=== PATIENT | male | born 1965 | race Caucasian/White ===

== ENCOUNTER 2020-03-11 12:40 | Emergency (ER) | payer SELFPAY ==
--- NOTE | 2020-03-11 13:07 | ED.PDOC ---
History of Present Illness - General Chief Complaint: General Time Seen by Provider: 03/11/20 12:44 Source: patient, RN notes reviewed, Vital Signs reviewed Exam Limitations: no limitations - History of Present Illness Initial Comments: 55 yo male with CKD, hx of testicular cancer comes in with two weeks of abdominal pain, generalized malaise, n/v. States he was [facility] 2 months ago, and is trying to establish care. Has been having LUQ abdominal pain, radiating to his left flank associated with n/v Allergies/Adverse Reactions: Allergies NO KNOWN ALLERGY Allergy (Verified 03/11/20 12:55) Home Medications: Ambulatory Orders Ondansetron HCl [Zofran] 4 mg PO TID PRN #15 tab 03/11/20 Review of Systems - Review of Systems Constitutional: Denies: chills, fever, malaise EENTM: Denies: blurred vision, ear discharge, throat pain, throat swelling Respiratory: States: short of breath. Denies: cough, stridor, wheezing Cardiology: Denies: chest pain, palpitations, syncope Gastrointestinal/Abdominal: States: abdominal pain, nausea, vomiting. Denies: constipation, diarrhea Genitourinary: Denies: dysuria, frequency, hematuria Musculoskeletal: Denies: back pain, joint pain, muscle pain Skin: Denies: rash Neurological: States: headache. Denies: numbness, paresthesia, pre-existing deficit, tremors, weakness Endocrine: Denies: unexplained weight gain, unexplained weight loss Hematologic/Lymphatic: Denies: blood clots, easy bleeding, easy bruising Past Medical History (General) - Patient Medical History Hx Seizures: No Hx Stroke: No Hx Dementia: No Hx Asthma: No Hx of COPD: No Hx Cardiac Disorders: No Hx Congestive Heart Failure: No Hx Pacemaker: No Hx Hypertension: Yes Hx Thyroid Disease: Yes Hx Diabetes: No Hx Gastroesophageal Reflux: No Hx Renal Disease: Yes Hx Cancer: No Hx of HIV: No Hx Other - free text: testicular cancer Surgical History: other - hernia repair - Social History Hx Chewing Tobacco Use: No Family Medical History - Family History Mother Hx Family;Other: polycystic kidney disease, renal transplant. Physical Exam - Physical Exam General Appearance: Alert, Comfortable, No apparent distress, Well Developed, Well Groomed, Well Hydrated, Well Nourished Eye Exam: bilateral normal Ears, Nose, Throat: hearing grossly normal, normal ENT inspection, normal pharynx Neck: non-tender, full range of motion, supple, normal inspection Respiratory: chest non-tender, lungs clear, normal breath sounds, no respiratory distress, no accessory muscle use Cardiovascular/Chest: normal peripheral pulses, regular rate, rhythm, no edema, no gallop, no JVD, no murmur Peripheral Pulses: radial,right: 2+, radial,left: 2+ Gastrointestinal/Abdominal: normal bowel sounds, non tender, soft, no organomegaly, no pulsatile mass Rectal Exam: deferred Back Exam: normal inspection, no CVA tenderness, no vertebral tenderness Extremity: normal range of motion, non-tender, normal inspection, no pedal edema, no calf tenderness, normal capillary refill 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 CT head negative for any ICH. CT shows:1. Markedly advanced changes of adult polycystic kidney disease with massive enlargement of each kidney and marked progression from previous 2009 examination. Innumerable small to large cysts with areas of hyperdense cyst formation is present with each kidney extending from the level of the diaphragm to several centimeters below each iliac crest. The left kidney bulges anteriorly in the retroperitoneum to near the undersurface of the anterior abdominal wall. Right kidney estimated at 23.3 x 11 x 15.4 cm and left kidney at 27 x 10 x 15 cm. Hydronephrosis is not apparent. Minimal residual renal parenchyma inferiorly on the right is little changed from 2009 study. 2. Marked mass effect with anterior displacement of the pancreas stomach small and large bowel without obstruction or ileus. 3. Small amount of posterior pelvic ascites, of uncertain significance. Moderate colonic diverticulosis noted. 4. Progressive degenerative changes of the mid lumbar spine with advanced stable degenerative changes at the lumbosacral junction. Cr Cl 29 Given zofran and phenergan for nausea. patient PO tolerant. The data reviewed when caring for this patient included: nurse notes, prior records, etc. The history and assessments from nurses notes were reviewed and considered, and the patient's home medication list was also reviewed and considered. My assessment and the results of testing completed here in the ED were discussed with the patient/family. All questions were answered, and they express understanding of my assessment and the plan. They have been instructed to return if their symptoms worsen, and have been asked to follow up with their primary care physicianand nephrology to recheck today's presenting complaint. Strict return precautions given. I have reviewed medication, benefits, alternatives and side effects. Patient decided to proceed with medication.patient discharged home in stable condition. Kaye Quarles DO #[id number] - Results/Orders Results/Orders: Laboratory Results WBC 6.0 K/mm3 (4.8-10.8) 03/11/20 13:00 RBC 3.59 M/mm3 (4.70-6.10) L 03/11/20 13:00 Hgb 10.8 gm/dL (14.0-18.0) L 03/11/20 13:00 Hct 31.4 % (42.0-52.0) L 03/11/20 13:00 MCV 87.5 fl (80.0-94.0) 03/11/20 13:00 MCH 30.2 pg (27.0-31.0) 03/11/20 13:00 MCHC 34.5 g/dL (33.0-37.0) 03/11/20 13:00 RDW 14.0 % (11.5-14.5) 03/11/20 13:00 Plt Count 223 K/mm3 (130-400) 03/11/20 13:00 MPV 7.4 fl (7.40-10.4) 03/11/20 13:00 Absolute Neuts (auto) 4.40 K/uL (1.8-6.8) 03/11/20 13:00 Absolute Lymphs (auto) 1.20 K/uL (1.0-3.4) 03/11/20 13:00 Absolute Monos (auto) 0.30 K/uL (0.2-0.8) 03/11/20 13:00 Absolute Eos (auto) 0.10 K/uL (0.0-0.4) 03/11/20 13:00 Absolute Basos (auto) 0.00 K/uL (0.0-0.1) 03/11/20 13:00 Neutrophils % 74.1 % (42.0-78.0) 03/11/20 13:00 Lymphocytes % 19.6 % (20.0-50.0) L 03/11/20 13:00 Monocytes % 4.8 % (2.0-9.0) 03/11/20 13:00 Eosinophils % 0.9 % (1.0-5.0) L 03/11/20 13:00 Basophils % 0.6 % (0.0-2.0) 03/11/20 13:00 Sodium 139 mmol/L (135-145) 03/11/20 13:00 Potassium 4.7 mmol/L (3.6-5.0) 03/11/20 13:00 Chloride 109 mmol/L (101-111) 03/11/20 13:00 Carbon Dioxide 22 mmol/L (21-31) 03/11/20 13:00 Anion Gap 12.7 (12-18) 03/11/20 13:00 BUN 29 mg/dL (7-18) H 03/11/20 13:00 Creatinine 3.07 mg/dL (0.6-1.3) H 03/11/20 13:00 BUN/Creatinine Ratio 9.4 (10-20) L 03/11/20 13:00 Random Glucose 126 mg/dL (70-105) H 03/11/20 13:00 Serum Osmolality 284.9 mOsm/L (275-295) 03/11/20 13:00 Calcium 8.7 mg/dL (8.4-10.2) 03/11/20 13:00 Total Bilirubin 0.6 mg/dL (0.2-1.0) 03/11/20 13:00 AST 30 IU/L (10-42) 03/11/20 13:00 ALT 26 IU/L (10-60) 03/11/20 13:00 Alkaline Phosphatase 86 IU/L (42-121) 03/11/20 13:00 Troponin I < 0.02 ng/mL (0.01-0.05) 03/11/20 13:00 B-Natriuretic Peptide 45.5 pg/ml (0-100) 03/11/20 13:00 Serum Total Protein 6.7 gm/dL (6.4-8.2) 03/11/20 13:00 Albumin 3.9 g/dl (3.2-5.5) 03/11/20 13:00 Globulin 2.8 gm/dL (2.3-3.5) 03/11/20 13:00 Albumin/Globulin Ratio 1.4 (1.1-1.9) 03/11/20 13:00 Lipase 52 U/L (22-51) H 03/11/20 13:00 TSH 2.82 uIU/mL (0.34-5.60) 03/11/20 13:00 Urine Color Yellow (Yellow) 03/11/20 13:56 Urine Appearance Clear (Clear) 03/11/20 13:56 Urine pH 6.0 (4.5-7.8) 03/11/20 13:56 Ur Specific [place] 1.020 (1.005-1.030) 03/11/20 13:56 Urine Protein 100 mg/dL H 03/11/20 13:56 Urine Glucose (UA) Negative mg/dL (Negative) 03/11/20 13:56 Urine Ketones Negative mg/dL (NEGATIVE) 03/11/20 13:56 Urine Blood Trace-intact (Negative) H 03/11/20 13:56 Urine Nitrite Negative 03/11/20 13:56 Urine Bilirubin Negative (NEGATIVE) 03/11/20 13:56 Urine Urobilinogen 0.2 mg/dL (0.2-1.0) 03/11/20 13:56 Ur Leukocyte Esterase Negative (Negative) 03/11/20 13:56 Urine RBC 0-1 /hpf 03/11/20 13:56 Urine WBC 0 /hpf 03/11/20 13:56 Ur Epithelial Cells 0-1 /hpf 03/11/20 13:56 Urine Bacteria 0 03/11/20 13:56 - EKG/XRAY/CT EKG: Sinus Comments: HR 70, normal intervals, no acute ischemia. XRAY: chest - no acute cardiopulmonary pathology CT: head no acute ICH. Departure - Departure Clinical Impression: Polycystic kidney disease Nausea and vomiting Qualifiers: Vomiting type: unspecified Vomiting Intractability: non-intractable Qualified Code(s): R11.2 - Nausea with vomiting, unspecified Hypertension Qualifiers: Hypertension type: unspecified Qualified Code(s): I10 - Essential (primary) hypertension Time of Disposition: 14:45 Disposition: Discharge to Home or Self Care Condition: Fair Departure Forms: ED Discharge - Pt. Copy, Patient Portal Self Enrollment Instructions: Polycystic Kidney Disease, Nausea and Vomiting, Adult (DC) Referrals: GALEN HUERTA [Referring] - 1-2 Days Prescriptions: Ondansetron HCl [Zofran] 4 mg PO TID PRN #15 tab PRN Reason: Vomiting Home Medications: Ambulatory Orders Ondansetron HCl [Zofran] 4 mg PO TID PRN #15 tab 03/11/20
--- NOTE | 2020-03-11 13:17 | RAD ---
EXAM: Chest,1 View CLINICAL HISTORY: sob COMPARISON STUDY: Chest x-ray from January 26, 2009 TECHNICAL: A single anteroposterior (AP) view of the chest was performed. FINDINGS: No consolidations, effusions, or edema. The heart size is not enlarged. AP portable technique causes magnification with some enlargement of the cardiac silhouette. The heart is significantly smaller than the previous examination. Left lateral rib fractures have healed in the interval since the prior exam. IMPRESSION: NO ACUTE ABNORMALITY. Electronically signed by: Jamey Kendall MD 03/11/2020 1:16 PM CDT
--- NOTE | 2020-03-11 13:46 | CT ---
EXAM DESCRIPTION: Abdoment/Pelvis w/o Contrast CLINICAL HISTORY: 55 years, 55 years, Male, Male, left abd pain COMPARISON: April 26, 2009 TECHNIQUE: CT of the abdomen and pelvis is performed according to our non contrast protocol This exam was performed according to our departmental dose-optimization program, which includes automated exposure control, adjustment of the mA and/or kV according to patient size and/or use of iterative reconstruction technique. FINDINGS: Lung bases are clear with normal sized heart and no evidence of hiatal hernia or pleural effusion or infiltrate. A small loculated pericardial effusion anteriorly in the subxiphoid region is little changed from 2009. The unenhanced liver and gallbladder are normal in appearance without ductal dilation or cyst or mass. Small normal adrenal glands and peripheral displacement of the upper normal spleen noted. There is anterior displacement of the pancreas which is otherwise normal in appearance. Massive cystic enlargement of both kidneys with predominant simple cyst and bilateral numerous small to moderate intermediate density and high density cyst consistent with areas of cystic hemorrhage. The radiographic pattern is typical of adult polycystic kidney disease with significant progression of the size of the cyst and enlargement of the kidneys. The cystic enlarged left kidney now demonstrates a length of 27 cm and extends from the medial aspect of the diaphragm to several centimeters below the iliac crests. The right kidney is similar in appearance and extends from the inferior surface of the diaphragm medially to below the iliac crest measuring 23.3 cm in length. Marked mass effect present from the marked enlargement of the kidneys with significant further enlargement since 2008 examination. A focus of remaining parenchyma involving the lower pole of the right kidney is little changed from prior study. Marked anterior compression of the small and large bowel by the massive enlargement of the kidneys noted. Transverse diameters on the right are estimated at 11 x 15.4 cm and on the left at 10 x 15 cm. The left kidney bulges anteriorly in the retroperitoneum almost to the level of the undersurface of the left rectus muscle. Anteriorly displaced large and small bowel with moderate left colonic diverticulosis noted. A tiny amount of ascites in the cul-de-sac of the pelvis noted. Aorta and vena cava and retroperitoneum unremarkable. Within the pelvis partially distended bladder and small normal prostate. Bowel obstruction or severe ileus is not apparent. Inguinal region and pelvic sidewall is unremarkable intact anterior abdominal wall. Advanced disc degenerative changes and [id number] appearance of the spine at L5-S1 is little changed from prior study with developing early degenerative disc changes at L2-3 and L3-4. Small central Schmorl's node in the inferior L3 endplate and larger left lateral Schmorl's node in the inferior L2 endplate, both new from previous 2009 IMPRESSION: 1. Markedly advanced changes of adult polycystic kidney disease with massive enlargement of each kidney and marked progression from previous 2009 examination. Innumerable small to large cysts with areas of hyperdense cyst formation is present with each kidney extending from the level of the diaphragm to several centimeters below each iliac crest. The left kidney bulges anteriorly in the retroperitoneum to near the undersurface of the anterior abdominal wall. Right kidney estimated at 23.3 x 11 x 15.4 cm and left kidney at 27 x 10 x 15 cm. Hydronephrosis is not apparent. Minimal residual renal parenchyma inferiorly on the right is little changed from 2009 study. 2. Marked mass effect with anterior displacement of the pancreas stomach small and large bowel without obstruction or ileus. 3. Small amount of posterior pelvic ascites, of uncertain significance. Moderate colonic diverticulosis noted. 4. Progressive degenerative changes of the mid lumbar spine with advanced stable degenerative changes at the lumbosacral junction. Electronically signed by: Morgan Grijalva MD 03/11/2020 1:45 PM CDT
[2020-03-11] MEDS ORDERED: ONDANSETRON INJ 4 MG/2 ML VIAL IV ONE (13:51)
[2020-03-11] MEDS ORDERED: PROMETHAZINE HCL INJ 12.5 MG in SODIUM CHLORIDE 0.9% 50ML 50 ML IVPB ONE (14:21)
[2020-03-11] MEDS ORDERED: METOPROLOL TARTRATE 25 MG TAB PO ONE (15:06)
--- NOTE | 2020-03-11 15:13 | CT ---
Study: CT of the Head. Indication: headache, PCKD Technique: Axial CT images of the head were acquired without intravenous contrast. This exam was performed according to our departmental dose-optimization program, which includes automated exposure control, adjustment of the mA and/or kV according to patient size and/or use of iterative reconstruction technique. Comparison: None. Findings: No acute ischemia, acute hemorrhage, mass, mass effect, midline shift, or extra-axial fluid collection identified by CT. Ventricles are normal in configuration without hydrocephalus. Brain parenchyma demonstrates a normal appearance for patient age. Paranasal sinuses are adequately aerated. Moderate bilateral mastoid effusions. Osseous structures and soft tissues are unremarkable. Impression: No acute intracranial abnormality by CT. Moderate bilateral mastoid effusions. Electronically signed by: Mahad Camarillo MD 03/11/2020 3:12 PM CDT
[2020-03-11 15:49] VITALS: BP 180/102; TEMP 97.9; O2SAT 99
== END 2020-03-11 15:51 | disposition home or self-care (01) ==
LOC: ER 12:40
DX: Q61.3 Polycystic kidney, unspecified (principal); R11.2 Nausea with vomiting, unspecified; I12.9 Hypertensive chronic kidney disease with stage 1 through stage 4 chronic kidney disease, or unspecified chronic kidney disease; R10.12 Left upper quadrant pain; R51.9 Headache, unspecified; R06.02 Shortness of breath; N18.9 Chronic kidney disease, unspecified; M47.817 Spondylosis without myelopathy or radiculopathy, lumbosacral region; E07.9 Disorder of thyroid, unspecified; Z85.47 Personal history of malignant neoplasm of testis; Z20.828 Contact with and (suspected) exposure to other viral communicable diseases
CPT/HCPCS: 36415; 70450; 71045; 74176; 80053; 81001; 83690; 83880; 84443; 84484; 85025; 87635; 93005; A4216; J2405; J2550